=== PATIENT | female | born 1940 | race Two or more races ===

== ENCOUNTER 2022-08-09 15:56 | Emergency (ER) | payer OTHER, MEDICAID ==
[~2022-08-09] VITALS: Ht 157.5 cm; Wt 72.7 kg
[2022-08-09 16:50] LABS: Basophils # (auto) 0 10 ^3/uL (0-0.2); Basophils % (auto) 0.2 % (0.0-2.0); Eosinophils # (auto) 0.1 10 ^3/uL (0-0.8); Eosinophils % (auto) 1.3 % (0.0-7.0); Hematocrit 37.3 % (36.0-46.0); Hemoglobin 12.9 g/dL (12.2-16.2); Lymphocytes # (auto) 1.4 10 ^3/uL (0.4-5.4); Lymphocytes % (auto) 13.2 % (10.0-50.0); Mean Corpuscular Hemoglobin 29.9 pg (28.0-32.0); Mean Corpuscular Hgb Conc. 34.4 g/dL (32.0-36.0); Mean Corpuscular Volume 86.9 fL (80.0-100.0); Monocytes # (auto) 0.4 10 ^3/uL (0-1.3); Monocytes % (auto) 3.9 % (0.0-12.0); Neutrophils # (auto) 8.4 10 ^3/uL (1.6-8.6); Neutrophils % (auto) 81.4 % (37.0-80.0); Nucleated Red Blood Cells % 0.1 %; Red Cell Distribution Width 13.4 % (11.8-14.3); White Blood Cell 10.3 10^3/uL (4.4-10.8)
[2022-08-09 17:12] LABS: Albumin 3.5 g/dL (3.4-5.0); BUN/Creatinine Ratio 23.5; Calcium 9.2 mg/dL (8.5-10.1); Potassium 3.8 mmol/L (3.5-5.1)
[2022-08-09 17:14] LABS: Bilirubin, Total 0.5 mg/dL (0.2-1.0); Total Protein 6.9 g/dL (6.4-8.2)
[2022-08-09] MEDS ORDERED: INSUINJ37 SC (20:02)
[2022-08-09] MEDS ORDERED: LOSA-39 PO (20:02)
[2022-08-09] MEDS ORDERED: INSUINJ9 SC (20:02)
[2022-08-09] MEDS ORDERED: PEN400T PO (20:02)
[2022-08-09] MEDS ORDERED: ALBUAER3 (20:02)
[2022-08-09] MEDS ORDERED: MAGN400T6 PO (20:02)
[2022-08-09] MEDS ORDERED: GLIP10TA16 PO (20:02)
[2022-08-09] MEDS ORDERED: SIMV-13 PO (20:02)
[2022-08-09] MEDS ORDERED: GLUC1TES XX (20:02)
[2022-08-09] MEDS ORDERED: ASPI-325 PO (20:02)
[2022-08-09] MEDS ORDERED: LORA-483 PO (20:02)
[2022-08-09] MEDS ORDERED: OMEP-260 PO (20:02)
[2022-08-09] MEDS ORDERED: BECL80AE11 INH (20:02)
[2022-08-09] MEDS ORDERED: CHOL20002 PO (20:02)
[2022-08-09] MEDS ORDERED: ASPI81CH59 PO (20:02)
[2022-08-09] MEDS ORDERED: CARV12.544 PO (20:02)
[2022-08-09] MEDS ORDERED: [UNRECOGNIZED DRUG - CODE] (20:02)
[2022-08-09] MEDS ORDERED: HYDR25TA87 PO (20:02)
[2022-08-09] MEDS ORDERED: ACET-6 PO (20:02)
[2022-08-09] MEDS ORDERED: ALCOPAD62 TOP (20:02)
[2022-08-09] MEDS ORDERED: ASCO-75 PO (20:02)
[2022-08-09] MEDS ORDERED: FLUT50SP NAS (20:02)
[2022-08-09] MEDS ORDERED: DEXTROSE (50%) 50ML SYRG IV PRN (20:15)
[2022-08-09 20:39] LABS: Cholesterol 112 mg/dL (< 200)
[2022-08-09 20:40] VITALS: BP 172/68
[2022-08-09 20:41] LABS: HDL Cholesterol 61 mg/dL (40-59); LDL Cholesterol 47 mg/dL (< 100); Triglycerides 98 mg/dL (< 150)
[2022-08-09] MEDS ORDERED: NITROGLYCERIN 0.4 MG SL TAB SL PRN (20:45)
[2022-08-09] MEDS ORDERED: SODIUM CHLORIDE 0.9% 1,000 ML IV SCH (20:45)
[2022-08-09] MEDS ORDERED: MORPHINE SULFATE INJ 2 MG/ml SYRG IV PRN (20:45)
[2022-08-09] MEDS ORDERED: ACETAMINOPHEN 325 MG TAB PO PRN (20:45)
[2022-08-09] MEDS ORDERED: hydrALAZINE HCL 20 MG/ML VL IV PRN (21:00)
[2022-08-09] MEDS ORDERED: PANTOPRAZOLE 40 MG/10 ML VIAL INJ IV ONE (21:00)
[2022-08-09] MEDS ORDERED: ACCU-CHEK COMFORT CURVE STRIP VI SCH (22:00)
[2022-08-09] MEDS ORDERED: CARVEDILOL 12.5 MG TAB PO SCH (22:00)
[2022-08-09] MEDS ORDERED: PENTOXIFYLLINE 400 MG ER TAB PO SCH (22:00)
[2022-08-09] MEDS ORDERED: InsuLIN REG 1unit/0.01ml Soln (100units/ml) SC SCH (22:00)
[2022-08-09] MEDS ORDERED: hydrALAZINE HCL 25 MG TAB PO SCH (22:00)
[2022-08-10] MEDS ORDERED: CHOLECALCIFEROL (VITD3) 2,000 UNIT CAP/TAB PO SCH (10:00)
[2022-08-10] MEDS ORDERED: PANTOPRAZOLE 40 MG/10 ML VIAL INJ IV SCH (10:00)
[2022-08-10] MEDS ORDERED: ASPirin-EC 81 mg tab PO SCH (10:00)
[2022-08-10] MEDS ORDERED: PATIENTS OWN MEDICATION (Magnesium Oxide 1 TAB) PO SCH (10:00)
[2022-08-10] MEDS ORDERED: PATIENTS OWN MEDICATION (Aspirin (Aspirin Low Dose) 1 TAB) PO SCH (10:00)
[2022-08-10] MEDS ORDERED: ENOXAPARIN SOD 40 MG/0.4 ML SYRINGE SC SCH (10:00)
[2022-08-10] MEDS ORDERED: PATIENTS OWN MEDICATION (Losartan Potassium 1 TAB) PO SCH (10:00)
== END 2022-08-09 20:41 | disposition left against medical advice (07) ==
LOC: ER 15:56 → EDBD 15:56 → ER 20:41
DX: E11.649 Type 2 diabetes mellitus with hypoglycemia without coma (principal); R41.82 Altered mental status, unspecified; R07.89 Other chest pain; I10 Essential (primary) hypertension; E78.5 Hyperlipidemia, unspecified; J45.909 Unspecified asthma, uncomplicated; Z79.4 Long term (current) use of insulin; Z79.84 Long term (current) use of oral hypoglycemic drugs; Z79.899 Other long term (current) drug therapy; Z79.82 Long term (current) use of aspirin
CPT/HCPCS: 36415; 70450; 71045; 80053; 80061; 83036; 83605; 85025